=== PATIENT | female | born 1975 | race American Indian/Alaskan Native ===

== ENCOUNTER 2019-04-03 00:39 | Emergency (ER) | payer BC ==
[2019-04-03 01:03] VITALS: BP 118/82
[2019-04-03 02:17] LABS: Bilirubin,Urine NEG (Negative); Blood,Urine SM (Negative); Color,Urine Straw (Yellow); Mucus,Urine FEW /HPF; Protein,Urine <15 mg/dL mg/dL (Negative); Urobilinogen,Urine < 2.0 mg/dL (<2.0); WBC,Urine < 1.0 /HPF (0.0-6.0)
[2019-04-03 02:22] LABS: HCG Qualitative,Urine Negative (Negative)
[2019-04-03] MEDS ORDERED: NORCO 5/325 PO STA (02:33)
--- NOTE | 2019-04-03 02:35 | Emergency Department Report ---
ED Back Pain/Injury HPI - General Chief Complaint: Back Pain/Injury Stated Complaint: LOWER BACK PAIN, NUMBNESS IN LEG AND HAND Time Seen by Provider: 04/03/19 02:33 Source: patient Limitations: No Limitations - History of Present Illness Initial Comments: 43-year-old obese [place] female with department complaining of a spontaneous and sudden onset of right flank and low back pain started today. She denies trauma, nausea, vomiting, hematuria, dysuria, fever, chills, sweats or headache. There's been no rashes or pre-existing lumbar issue MD Complaint: back pain Place: home Radiation: none Severity: mild Quality: dull Consistency: constant Improves With: immobilization Worsens With: movement Context: turning/twisting - Related Data Previous Rx's Medication Instructions Recorded Last Taken Type Ketorolac [Toradol] 10 mg PO Q6H PRN #15 tablet 04/03/19 Unknown Rx methOCARBAMOL [Robaxin] 750 mg PO Q8H PRN #21 tablet 04/03/19 Unknown Rx Allergies Allergy/AdvReac Type Severity Reaction Status Date / Time No Known Allergies Allergy Unverified 04/03/19 00:53 ED Review of Systems ROS: Stated complaint: LOWER BACK PAIN, NUMBNESS IN LEG AND HAND Other details as noted in HPI Comment: All other systems reviewed and negative ED Past Medical Hx - Surgical History Past Surgical History?: Yes Additional Surgical History: C Section - Social History Smoking Status: Never Smoker - Medications Home Medications: Home Medications Medication Instructions Recorded Confirmed Last Taken Type Ketorolac [Toradol] 10 mg PO Q6H PRN #15 tablet 04/03/19 Unknown Rx methOCARBAMOL [Robaxin] 750 mg PO Q8H PRN #21 tablet 04/03/19 Unknown Rx ED Physical Exam - General Limitations: No Limitations General appearance: alert, in no apparent distress - Head Head exam: Present: atraumatic, normocephalic - Eye Eye exam: Present: normal appearance, PERRL, EOMI Pupils: Present: normal accommodation - ENT ENT exam: Present: normal exam, mucous membranes moist - Neck Neck exam: Present: normal inspection, tenderness, full ROM. Absent: meningismus, thyromegaly - Respiratory Respiratory exam: Present: normal lung sounds bilaterally. Absent: respiratory distress, wheezes, rales, rhonchi, chest wall tenderness - Cardiovascular Cardiovascular Exam: Present: regular rate, normal rhythm. Absent: systolic murmur, diastolic murmur, rubs, gallop - GI/Abdominal GI/Abdominal exam: Present: soft, normal bowel sounds. Absent: guarding, mass, bruit - Extremities Exam Extremities exam: Present: normal inspection, normal capillary refill - Back Exam Back exam: Present: normal inspection, full ROM, muscle spasm. Absent: CVA tenderness (R), CVA tenderness (L) - Neurological Exam Neurological exam: Present: alert, oriented X3, CN II-XII intact, normal gait - Psychiatric Psychiatric exam: Present: normal affect, normal mood. Absent: depressed, manic - Skin Skin exam: Present: warm, dry, intact, normal color. Absent: rash ED Course Vital Signs 04/03/19 04/03/19 04/03/19 00:54 01:00 02:51 Temperature 98.2 F 98.2 F Pulse Rate 95 H 94 H Respiratory 18 18 16 Rate Blood Pressure 118/82 118/82 O2 Sat by Pulse 100 100 Oximetry Critical care attestation.: If time is entered above; I have spent that time in minutes in the direct care of this critically ill patient, excluding procedure time. ED Disposition Clinical Impression: Back pain Disposition: DC-01 TO HOME OR SELFCARE Is pt being admited?: No Does the pt Need Aspirin: No Condition: Stable Instructions: Back Pain (ED), Acute Low Back Pain (ED), Arthralgia (ED) Referrals: PRIMARY MD ELIANE [Primary Care Provider] - 3-5 Days JOSEPHINE MORGAN MD [Staff Physician] - 3-5 Days
== END 2019-04-03 04:28 | disposition home or self-care (01) ==
LOC: ED 00:39
DX: M54.5 Low back pain (principal); Z79.899 Other long term (current) drug therapy
CPT/HCPCS: 81001; 81025